=== PATIENT | male | born 1985 | race Caucasian/White ===

== ENCOUNTER 2025-01-21 21:33 | Emergency (ER) | payer OTHER ==
[~2025-01-21] VITALS: Ht 167.6 cm; Wt 63.6 kg
[2025-01-21 21:49] VITALS: TEMP 98.2
[2025-01-22 00:15] VITALS: BP 108/70; PULSE 81; RESP 16; O2SAT 100
[2025-01-22] MEDS: ACETAMINOPHEN 325 MG TABLET PO ONE (00:47)
[2025-01-22] MEDS: IBUPROFEN 400 MG TABLET PO ONE (00:47)
== END 2025-01-22 01:30 | disposition home or self-care (01) ==
LOC: EMS 21:33
DX: S20.212A Contusion of left front wall of thorax, initial encounter (principal); Z88.8 Allergy status to other drugs, medicaments and biological substances; Y04.8XXA Assault by other bodily force, initial encounter; Y93.89 Activity, other specified; Y92.89 Other specified places as the place of occurrence of the external cause; Y99.8 Other external cause status
CPT/HCPCS: 71101; 93005; 99283

== ENCOUNTER 2025-07-18 13:22 | Emergency (ER) | payer OTHER ==
[~2025-07-18] VITALS: Ht 167.6 cm; Wt 71.0 kg
[2025-07-18 13:35] VITALS: BP 119/80; PULSE 92; RESP 16; TEMP 98; O2SAT 98
== END 2025-07-18 14:53 | disposition left against medical advice (07) ==
LOC: EMS 13:22
DX: R51.9 Headache, unspecified (principal); R11.0 Nausea; Z53.21 Procedure and treatment not carried out due to patient leaving prior to being seen by health care provider
CPT/HCPCS: 99281; Z7502